=== PATIENT | male | born 1990 | race Caucasian/White ===

== ENCOUNTER 2017-07-13 18:51 | Emergency (ER) | payer OTHER ==
[~2017-07-13] VITALS: Ht 172.7 cm; Wt 99.8 kg
--- NOTE | 2017-07-13 20:32 | NUR ---
Patient discharged to home in stable conditon. Written and verbal after care instructions given. Patient verbalizes understanding of instructions.
== END 2017-07-13 20:34 | disposition home or self-care (01) ==
LOC: ER 18:51
DX: J02.9 Acute pharyngitis, unspecified (principal); K21.9 Gastro-esophageal reflux disease without esophagitis; Z88.0 Allergy status to penicillin
CPT/HCPCS: 99283; A4663

== ENCOUNTER 2017-11-08 17:40 | Emergency (ER) | payer OTHER ==
[~2017-11-08] VITALS: Ht 172.7 cm; Wt 100.7 kg
--- NOTE | 2017-11-08 19:08 | NUR ---
PT HAS NOT VOIDED, LARGE CUP OF WATER GIVEN EARLIER. SBAR REPORT TO THEO DAS.
[2017-11-08] MEDS ORDERED: BISACODYL 10 MG SUPP.RECT RC ONE (19:15)
[2017-11-08] MEDS ORDERED: KETOROLAC TROMETHAMINE 30 MG INJ IVP ONE (19:15)
[2017-11-08 19:27] LABS: BASOPHILS # (AUTO) 0.1 K/uL (0.0-8.0); BASOPHILS % (AUTO) 0.8 % (0.0-2.0); EOSINOPHILS # (AUTO) 0.3 K/uL (0.0-0.7); EOSINOPHILS % (AUTO) 2.7 % (0.0-7.0); HEMATOCRIT 44.2 % (36.7-47.1); HEMOGLOBIN 15.4 g/dL (12.5-16.3); LYMPHOCYTES # (AUTO) 4.4 K/uL (20.0-40.0); LYMPHOCYTES % (AUTO) 47.9 % (20.5-51.5); MEAN CORPUSCULAR HEMOGLOBIN 29.6 uug (23.8-33.4); MEAN CORPUSCULAR HGB CONC 35 g/dL (32.5-36.3); MEAN CORPUSCULAR VOLUME 85.1 fL (73.0-96.2); MONOCYTES # (AUTO) 0.8 K/uL (2.0-10.0); MONOCYTES % (AUTO) 9.2 % (0.0-11.0); NEUTROPHILS # (AUTO) 3.6 K/uL (1.8-8.9); NEUTROPHILS % (AUTO) 39.4 % (38.5-71.5); PLATELET COUNT (AUTO) 301 K/uL (152-348); RED BLOOD CELL COUNT(AUTO) 5.19 MIL/uL (4.06-5.63); WHITE BLOOD COUNT (AUTO) 9.2 K/uL (3.6-10.2)
[2017-11-08 19:36] LABS: CREATININE 1.1 mg/dL (0.6-1.3); POTASSIUM 3.6 mmol/L (3.5-5.1)
[2017-11-08 19:42] LABS: BILIRUBIN,DIRECT 0.1 mg/dL (0.0-0.2); BILIRUBIN,TOTAL 0.6 mg/dL (0.2-1.0); TOTAL PROTEIN, SERUM 7.3 g/dL (6.4-8.2)
[2017-11-08 20:10] LABS: *BILIRUBIN,URIN NEGATIVE (NEGATIVE); *BLOOD, URINE NEGATIVE (NEGATIVE); *CLARITY,URINE CLEAR (CLEAR); *COLOR,URINE YELLOW (YELLOW); *KETONES,URINE NEGATIVE (NEGATIVE); *PROTEIN,URINE NEGATIVE (NEGATIVE); *UROBILINOGEN,URINE 0.2 E.U./dl (NORMAL); LEUKOCYTE ESTERASE ,URINE NEGATIVE (NEGATIVE); NITRITE, URINE NEGATIVE (NEGATIVE); UGLUCOSE NEGATIVE (NEGATIVE)
[2017-11-08 20:20] LABS: SQUAMOUS EPITHELIAL CELL,UR FEW /HPF (NONE SEEN); WBC,URINE 0-3 /HPF (0-3)
[2017-11-08] MEDS ORDERED: KETOROLAC TROMETHAMINE 30 MG INJ ONE (20:22)
--- NOTE | 2017-11-08 21:33 | NUR ---
Patient discharged to home in stable conditon. Written and verbal after care instructions given. Patient verbalizes understanding of instructions.
== END 2017-11-08 21:34 | disposition home or self-care (01) ==
LOC: ER 17:41
DX: R10.10 Upper abdominal pain, unspecified (principal); K59.00 Constipation, unspecified; K44.9 Diaphragmatic hernia without obstruction or gangrene; K21.9 Gastro-esophageal reflux disease without esophagitis; Z88.0 Allergy status to penicillin
CPT/HCPCS: 36415; 83690; 85025; A4663; J1885